=== PATIENT | male | born 2005 | race African-American/Black ===

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

== ENCOUNTER 2025-01-06 17:09 | Emergency (ER) | payer MEDICAID, SELFPAY ==
[2025-01-06 17:14] VITALS: BP 145/75; PULSE 97; RESP 20; TEMP 36.8; O2SAT 98
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
[2025-01-06 18:29] LABS: Abs Immature Grans 0.04 10^3/uL (0.0-0.06); HCT 41.3 % (40.0-50.0); HGB 14.2 g/dL (13.5-17.5); Immature Grans % 0.4 %; MCH 29.9 pg (27.0-33.0); MCHC 34.4 % (32.0-36.0); MCV 87 fL (80-95); MPV 7.9 fL (8.0-11.0); Platelet Count 363 10^3/uL (130-400); RBC 4.75 10^6/uL (4.36-5.78); RDW 11.9 % (11.8-14.1); RDW-SD 38.1 fL; WBC 9.98 10^3/uL (4.4-10.8)
[2025-01-06] MEDS: Normal Saline - Diluent 50 ML VIAL IJ (18:39)
[2025-01-06] MEDS: Omnipaque 350 MG/ML 100 ML BTL IJ (18:40)
[2025-01-06 18:42] LABS: INR 1.1 (0.9-1.1); PTT Activated 27.0 sec (20.6-30.2); Prothrombin Time 11.0 sec (9.1-11.1)
[2025-01-06 18:48] LABS: ALT 31 U/L (16-63); AST 22 U/L (15-37); Albumin 4.2 g/dL (3.4-5.0); Alkaline Phosphatase 84 U/L (46-116); Anion Gap 10.3 mmol/L (3-11); BUN 19 mg/dL (7-18); Bilirubin, Total 1.2 mg/dL (0.2-1.0); CO2 25.7 mmol/L (21.0-32.0); Calcium 9.4 mg/dL (8.5-10.1); Chloride 103 mmol/L (98-107); Estimated GFR 126.17 (mL/min/1.73m2); Glucose 90 mg/dL (74-106); Potassium 3.8 mmol/L (3.5-5.1); Sodium 139 mmol/L (136-145); Total Protein 8.4 g/dL (6.4-8.2)
[2025-01-06] MEDS: Normal Saline Flush 10 ML SYR IVP (18:49)
[2025-01-06 18:55] LABS: Lipase 19 U/L (<78)
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
[2025-01-06 20:45] VITALS: BP 107/51; PULSE 84; RESP 16; TEMP 36.5; O2SAT 98
== END 2025-01-06 20:45 | disposition home or self-care (01) ==
PROVIDERS: Emergency Provider Student in an Organized Health Care Education/Training Program; PCP Pediatrics
DX: S09.8XXA Other specified injuries of head, initial encounter (principal); W49.09XA Other specified item causing external constriction, initial encounter; Y04.8XXA Assault by other bodily force, initial encounter; M54.2 Cervicalgia; M54.50 Low back pain, unspecified
CPT/HCPCS: 99284; 99285; 70496; 70498; 72125; 80053; 83690; 71046; 85025; 85610; 85730; J3490